=== PATIENT | male | born 1980 | race Caucasian/White ===

== ENCOUNTER 2017-09-20 18:49 | Emergency (ER) | payer OTHER ==
[~2017-09-20] VITALS: Ht 180.3 cm; Wt 113.4 kg
[2017-09-20] MEDS ORDERED: METF500 PO (20:35)
[2017-09-20] MEDS ORDERED: BRINTELLIX10 MG PO (20:35)
[2017-09-20] MEDS ORDERED: Norco 5-325 Ta1 EACH PO (21:13)
== END 2017-09-20 21:33 | disposition home or self-care (01) ==
LOC: ER 18:49
DX: S89.91XA Unspecified injury of right lower leg, initial encounter (principal); F17.200 Nicotine dependence, unspecified, uncomplicated; X58.XXXA Exposure to other specified factors, initial encounter
CPT/HCPCS: 73562-RT; 99283

== ENCOUNTER → 2018-12-20 | Outpatient (CLI) | payer OTHER ==
[~2018-12-20] MED LIST: BRINTELLIX10 MG PO; METF500 PO; Norco 5-325 Ta1 EACH PO
== END | disposition home or self-care (01) ==
LOC: LAB SHORT 13:15 → LAB EV 13:15
DX: H04.322 Acute dacryocystitis of left lacrimal passage (principal)
CPT/HCPCS: 87070; 87077; 87147; 87186; 87205